=== PATIENT | female | born 1985 | race Hispanic/Latino ===

== ENCOUNTER 2018-05-29 17:51 | Emergency (ER) | payer OTHER ==
[2018-05-29 20:37] LABS: Urine Bacteria <20 /HPF (<20); Urine Culture Reflex Order NOT NEEDED; Urine RBC <5 /HPF (NONE SEEN)
--- NOTE | 2018-05-29 20:43 | ER ---
Nurse's Notes [facility] Name: Jessica Jacobsen Age: 33 yrs Sex: Female : 1985 Arrival Date: 05/29/2018 Time: 17:55 Bed 27 Private MD: Diagnosis: Acute upper respiratory infection, unspecified; related conditions, unspecified Presentation: 05/29 18:23 Presenting complaint: Patient states: Positive UPT over the weekend, began having flu ph like symptoms Sat, went to urgent care and was sent here because of , c/o fatigue, body aches, and sore throat. Transition of care: patient was not received from another setting of care. Onset of symptoms was May 29, 2018. Risk Assessment: Do you want to hurt yourself or someone else? Patient reports no desire to harm self or others. Initial Sepsis Screen: Does the patient meet any 2 criteria? No. Patient's initial sepsis screen is negative. Care prior to arrival: None. 18:23 Method Of Arrival: Ambulatory 18:23 Acuity: WILLY 4 ph 20:56 Initial Sepsis Screen: Does the patient have a suspected source of infection? No. tl3 Patient's initial sepsis screen is negative. 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 - Social history:: Smoking status: unknown. - Ebola Screening: : No symptoms or risks identified at this time. Screenin:35 Abuse screen: Denies threats or abuse. Nutritional screening: No deficits noted. tl3 Tuberculosis screening: No symptoms or risk factors identified. Fall Risk None identified. Assessment: 18:35 General: Appears uncomfortable, slender, well groomed, well developed, well nourished, tl3 Behavior is calm, cooperative, appropriate for age. Pain: Complains of pain in generalized body aches. Neuro: Level of Consciousness is awake, alert, obeys commands, Oriented to person, place, time, situation, Appropriate for age. Cardiovascular: Patient's skin is warm and dry. Respiratory: Airway is patent Respiratory effort is even, unlabored, Respiratory pattern is regular, symmetrical. GI:. : Reports positive test this week-end. EENT: Nares with drainage noted. Derm: No signs and/or symptoms reported regarding the dermatologic system. Musculoskeletal: No signs and/or symptoms reported regarding the musculoskeletal system. 20:07 Reassessment: No changes from previously documented assessment. Patient and/or family tl3 updated on plan of care and expected duration. Pain level reassessed. Patient is alert, oriented x 3, equal unlabored respirations, skin warm/dry/pink. pt ambulating to for urine specimen. 20:55 Reassessment: pt being discharged. tl3 Vital Signs: 18:26 BP 135 / 83; Pulse 97; Resp 22; Temp 98.0; Pulse Ox 100% on R/A; Weight 113.4 kg; ph Height 5 ft. 6 in. (167.64 cm); 20:38 BP 133 / 88; Pulse 94; Resp 18; Pulse Ox 99% on R/A; tl3 18:26 Body Mass Index 40.35 (113.40 kg, 167.64 cm) ph ED Course: 17:55 Patient arrived in ED. mr 18:26 Triage completed. ph 18:28 Arm band placed on. ph 18:35 Elana Calabrese RN is Primary Nurse. tl3 18:35 Patient has correct armband on for positive identification. Bed in low position. Call tl3 light in reach. Pulse ox on. NIBP on. 18:35 No provider procedures requiring assistance completed. tl3 18:43 Flu Sent. tl3 19:14 Kobe Loomis MD is Attending Physician. 20:07 Patient did not have IV access during this emergency room visit. tl3 20:41 Shirley Garcia MD is Referral Physician. Administered Medications: No medications were administered Outcome: 20:42 Discharge ordered by . 20:55 Discharged to home ambulatory. tl3 20:55 Condition: stable 20:55 Discharge instructions given to patient, family, Instructed on discharge instructions, follow up and referral plans. medication usage, Demonstrated understanding of instructions, follow-up care, medications. 20:57 Patient left the ED. tl3 Signatures: AmesMirna harrington Tracey Cancino RN RN Kobe Loomis MD MD Elana Calabrese RN RN tl3
--- NOTE | 2018-05-29 20:43 | EDPHYS ---
Physician Documentation [facility] Name: Jessica Jacobsen Age: 33 yrs Sex: Female : 1985 Arrival Date: 05/29/2018 Time: 17:55 Bed 27 Private MD: ED Physician Kobe Loomis HPI: 05/29 21:19 This 33 yrs old Female presents to ER via Ambulatory with complaints of Flu gs Symptoms, 5 wks . 21:19 The patient or guardian reports cough, that is intermittent. Onset: The gs symptoms/episode began/occurred 2 day(s) ago. Severity of symptoms: At their worst the symptoms were moderate, in the emergency department the symptoms are unchanged. Modifying factors: The symptoms are alleviated by nothing, the symptoms are aggravated by nothing. Associated signs and symptoms: Pertinent positives: fever, Pertinent negatives: chest pain, diarrhea. The patient has experienced similar episodes in the past, a few times. The patient has been recently seen at an urgent care. 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 - Social history:: Smoking status: unknown. - Ebola Screening: : No symptoms or risks identified at this time. ROS: 21:19 All other systems are negative. gs 21:19 : Negative for urinary symptoms, hematuria, pelvic pain, flank pain, burning with gs urination, vaginal bleeding, vaginal discharge, vaginal itching. Exam: 21:19 Head/Face: Normocephalic, atraumatic. Eyes: Pupils equal round and reactive to light, gs extra-ocular motions intact. Lids and lashes normal. Conjunctiva and sclera are non-icteric and not injected. Cornea within normal limits. Periorbital areas with no swelling, redness, or edema. ENT: Nares patent. No nasal discharge, no septal abnormalities noted. Tympanic membranes are normal and external auditory canals are clear. Oropharynx with no redness, swelling, or masses, exudates, or evidence of obstruction, uvula midline. Mucous membranes moist. Neck: Trachea midline, no thyromegaly or masses palpated, and no cervical lymphadenopathy. Supple, full range of motion without nuchal rigidity, or vertebral point tenderness. No Meningismus. Chest/axilla: Normal chest wall appearance and motion. Nontender with no deformity. No lesions are appreciated. Cardiovascular: Regular rate and rhythm with a normal S1 and S2. No gallops, murmurs, or rubs. Normal PMI, no JVD. No pulse deficits. Respiratory: Lungs have equal breath sounds bilaterally, clear to auscultation and percussion. No rales, rhonchi or wheezes noted. No increased work of breathing, no retractions or nasal flaring. Abdomen/GI: Soft, non-tender, with normal bowel sounds. No distension or tympany. No guarding or rebound. No evidence of tenderness throughout. Back: No spinal tenderness. No costovertebral tenderness. Full range of motion. Skin: Warm, dry with normal turgor. Normal color with no rashes, no lesions, and no evidence of cellulitis. MS/ Extremity: Pulses equal, no cyanosis. Neurovascular intact. Full, normal range of motion. Neuro: Awake and alert, GCS 15, oriented to person, place, time, and situation. Cranial nerves II-XII grossly intact. Motor strength 5/5 in all extremities. Sensory grossly intact. Cerebellar exam normal. Normal gait. 21:19 Constitutional: The patient appears alert, awake. Vital Signs: 18:26 BP 135 / 83; Pulse 97; Resp 22; Temp 98.0; Pulse Ox 100% on R/A; Weight 113.4 kg; ph Height 5 ft. 6 in. (167.64 cm); 20:38 BP 133 / 88; Pulse 94; Resp 18; Pulse Ox 99% on R/A; tl3 18:26 Body Mass Index 40.35 (113.40 kg, 167.64 cm) ph MDM: 20:02 Patient medically screened. gs 21:19 Differential Diagnosis: Bronchitis Influenza Upper Respiratory Infection. Data gs reviewed: vital signs, nurses notes. Counseling: I had a detailed discussion with the patient and/or guardian regarding: the historical points, exam findings, and any diagnostic results supporting the discharge/admit diagnosis, lab results. Response to treatment: the patient's symptoms have mildly improved after treatment. 21:22 Counseling: I had a detailed discussion with the patient and/or guardian regarding: the gs presence of at least one elevated blood pressure reading (>120/80) during this emergency department visit. Special discussion: I have referred the patient to see his PCP for further evaluation of high blood pressure. 05/29 18:40 Order name: Flu tl3 05/29 19:36 Order name: Urine Microscopic Only gs 05/29 19:36 Order name: Urine Test (obtain specimen); Complete Time: 20:38 gs 05/29 19:36 Order name: Urine Dipstick-Ancillary (obtain specimen); Complete Time: 20:38 gs 05/29 20:19 Order name: Urine Dipstick--Ancillary (enter results) ms 05/29 20:19 Order name: Urine --Ancillary (enter results) ms Administered Medications: No medications were administered Disposition: 05/29/18 20:42 Discharged to Home. Impression: Acute upper respiratory infection, unspecified, related conditions, unspecified. - Condition is Stable. - Discharge Instructions: Fever, Adult, Upper Respiratory Infection, Adult, First Trimester of , Managing Your Hypertension. - Medication Reconciliation Form, Thank You Letter, Antibiotic Education, Prescription Opioid Use form. - Follow up: Shirley Garcia MD; When: 2 - 3 days; Reason: Re-evaluation by your physician. Signatures: Dispatcher [employer] EDTracey Canales RN RN Kobe Loomis MD MD Elana Calabrese RN RN tl3 Corrections: (The following items were deleted from the chart) 20:57 20:42 05/29/2018 20:42 Discharged to Home. Impression: Acute upper respiratory tl3 infection, unspecified; related conditions, unspecified. Condition is Stable. Forms are Medication Reconciliation Form, Thank You Letter, Antibiotic Education, Prescription Opioid Use. Follow up: Shirley Garcia; When: 2 - 3 days; Reason: Re-evaluation by your physician.
[2018-05-29 20:58] LABS: Urine Blood TRACE (NEG); Urine Glucose NEGATIVE (NEG); Urine Protein NEGATIVE (NEG); Urine Specific Gravity 1.015 (1.005-1.030); Urine pH 5.5 (5.0-7.0)
== END 2018-05-29 20:57 | disposition home or self-care (01) ==
LOC: ER 17:51
DX: O26.891 Other specified pregnancy related conditions, first trimester (principal); J06.9 Acute upper respiratory infection, unspecified; Z3A.01 Less than 8 weeks gestation of pregnancy; Z79.82 Long term (current) use of aspirin
CPT/HCPCS: 81003; 81015; 81025; 87804; 99283

== ENCOUNTER 2018-06-10 18:04 | Emergency (ER) | payer OTHER ==
--- OUTSIDE RECORDS SUMMARY | 2018-06-10 18:06 | XMS REPORT ---
:1985 [facility] Address [address] [place] [address] [address] [place] [address] Care Team Providers Name Role Phone Unavailable Unavailable Unavailable Problems This patient has no known problems. Allergies, Adverse Reactions, Alerts Allergy Allergy Status Severity Reaction(s) Onset Inactive Treating Comments Name Type Date Date Clinician No Known DA Active U 2017-04 Allergies -08 00:00:0 0 Medications This patient has no known medications.
[2018-06-10 18:59] LABS: Absolute Lymphocytes (CBC) 1.6 K/uL (0.7-4.9); Absolute Monocytes 0.5 K/uL (0.1-1.3); Absolute Neutrophil 7.1 K/uL (1.8-8.0); Basophils % 0.7 % (0-1.3); Eosinophils % 2.5 % (0-4.4); Hematocrit 39.7 % (36.0-45.0); Lymphocytes % 16.5 % (15.3-44.8); MPV 9.2 fL (7.6-11.3); Monocytes % 4.9 % (3.3-12.3); RBC Red Blood Cell Count 4.96 M/uL (3.86-4.86)
[2018-06-10 19:51] LABS: BUN Blood Urea Nitrogen 8 mg/dL (7-18); Bicarbonate 29 mmol/L (21-32); Glucose Level 104 mg/dL (74-106); HCG, Quantitative 13995 mIU/mL (1-3); Potassium 3.8 mmol/L (3.5-5.1); Sodium Level 140 mmol/L (136-145)
[2018-06-10 19:56] LABS: Urine Blood 2+ (NEG); Urine Glucose NEGATIVE (NEG); Urine Protein NEGATIVE (NEG); Urine Specific Gravity 1.015 (1.005-1.030); Urine pH 7.5 (5.0-7.0)
--- NOTE | 2018-06-10 19:56 | RAD REPORT ---
EXAM DESCRIPTION: US - Transvaginal OB - 06/10/2018 7:47 pm CLINICAL HISTORY: VAGINAL BLEEDING COMPARISON: <Comparisons> FINDINGS: A single gestational sac is seen within the uterus. The shape of the sac is within normal limits for gestational age. A small yolk sac is suspected to be present within the gestational sac, h owever, no embryo yet identified. The placenta is not yet developed due to early gestational age. The maternal adnexa and left ovary are within normal limits. Normal Doppler blood flow was demonstrat ed to the left ovary. The right ovary is obscured by bowel. IMPRESSION: Early IUP findings are present. However, embryo is not yet noted. Advise correlation wit h HCG level and follow-up ultrasound in 7-10 days.
--- NOTE | 2018-06-10 20:21 | ER ---
Nurse's Notes [facility] Name: Jessica Jacobsen Age: 33 yrs Sex: Female : 1985 Arrival Date: 06/10/2018 Time: 18:07 Bed 15 Private MD: Diagnosis: Threatened Presentation: 06/10 18:18 Initial Sepsis Screen: Does the patient meet any 2 criteria? Yes Does the patient have tw2 a suspected source of infection? No. Patient's initial sepsis screen is negative. Care prior to arrival: None. 18:24 Presenting complaint: Patient states: pt states she had OB appt Tuesday with out of town tw2 dr and she had some spotting, but then today she had more bleeding with small clots and is having a "little cramping". Transition of care: patient was not received from another setting of care. Onset of symptoms was June 10, 2018. Risk Assessment: Do you want to hurt yourself or someone else? Patient reports no desire to harm self or others. 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 - Social history:: Smoking status: . - Ebola Screening: : Patient denies travel to an Ebola-affected area in the 21 days before illness onset. Screenin:18 Abuse screen: Denies threats or abuse. Nutritional screening: No deficits noted. tw2 Tuberculosis screening: No symptoms or risk factors identified. Fall Risk None identified. Assessment: 18:25 General: Appears in no apparent distress. obese, well groomed, Behavior is calm, tw2 cooperative, appropriate for age. Pain: Complains of pain in pelvis. Neuro: Level of Consciousness is awake, alert, obeys commands, Oriented to person, place, time, situation. Cardiovascular: Capillary refill < 3 seconds Patient's skin is warm and dry. Respiratory: Airway is patent Respiratory effort is even, unlabored, Respiratory pattern is regular, symmetrical, Breath sounds are clear bilaterally. GI: No signs and/or symptoms were reported involving the gastrointestinal system. Abdomen is round non-distended, Bowel sounds present X 4 quads. : Reports vaginal bleeding that is bright red, with clots, light flow. EENT: No signs and/or symptoms were reported regarding the EENT system. Derm: No signs and/or symptoms reported regarding the dermatologic system. Musculoskeletal: Range of motion: intact in all extremities. 19:03 Reassessment: Patient appears in no apparent distress at this time. Patient and/or jb4 family updated on plan of care and expected duration. Pain level reassessed. Patient is alert, oriented x 3, equal unlabored respirations, skin warm/dry/pink. 20:30 Reassessment: Patient appears in no apparent distress at this time. Patient and/or jb4 family updated on plan of care and expected duration. Pain level reassessed. Patient is alert, oriented x 3, equal unlabored respirations, skin warm/dry/pink. Vital Signs: 18:25 BP 132 / 79; Pulse 85; Resp 19; Temp 97.7(O); Pulse Ox 100% on R/A; Pain 5/10; tw2 19:15 BP 137 / 91; Pulse 76; Resp 16; Pulse Ox 100% on R/A; jb4 20:30 BP 134 / 91; Pulse 90; Resp 18; Pulse Ox 99% on R/A; jb4 ED Course: 18:07 Patient arrived in ED. rg4 18:17 Smitha Crum RN is Primary Nurse. tw2 18:18 Arm band placed on. tw2 18:19 Ozzy Noyola NP is PHCP. pm1 18:19 Haja Davey MD is Attending Physician. pm1 18:25 Triage completed. tw2 18:25 Bed in low position. Call light in reach. Adult w/ patient. Pulse ox on. NIBP on. tw2 18:40 Inserted saline lock: 22 gauge in right antecubital area, using aseptic technique. tw2 Blood collected. 18:47 Missed attempt(s): 22 gauge in left antecubital area. Bleeding controlled, band aid tw2 applied, catheter tip intact. 19:00 Report given to JOSE ALBERTO Valenzuela - outstanding US at this time. tw2 19:43 Ultrasound completed. Patient tolerated well. Notified BORING MACHINE OPERATOR PRODUCTION/DIAN tiwari. sg3 19:48 US Transvaginal Ob In Process Unspecified. EDMS 20:30 No provider procedures requiring assistance completed. IV discontinued, intact, jb4 bleeding controlled, No redness/swelling at site. Pressure dressing applied. Administered Medications: No medications were administered Outcome: 20:11 Discharge ordered by MD. pm1 20:30 Discharged to home ambulatory, with family. jb4 20:30 Condition: stable 20:30 Discharge instructions given to patient, family, Instructed on discharge instructions, follow up and referral plans. Demonstrated understanding of instructions, follow-up care. 20:31 Patient left the ED. jb4 Signatures: Dispatcher [employer] EDMS Ozzy Noyola NP BORING MACHINE OPERATOR PRODUCTION pm1 Smitha Crum RN RN tw2 Sameera Grove rg4 Aaron Arriaga, RN RN jb4 Honey Ordoñez sg3 Corrections: (The following items were deleted from the chart) 19:25 19:03 BP 137 / 91; Pulse 76bpm; Resp 16bpm; Pulse Ox 100% RA; jb4 jb4
--- NOTE | 2018-06-10 20:21 | EDPHYS ---
Physician Documentation [facility] Name: Jessica Jacobsen Age: 33 yrs Sex: Female : 1985 Arrival Date: 06/10/2018 Time: 18:07 Bed 15 Private MD: ED Physician Haja Davey HPI: 06/10 19:09 This 33 yrs old Female presents to ER via Ambulatory with complaints of pm1 Vaginal Bleeding, + Preg <12wks. 19:09 The patient presents to the emergency department with vaginal bleeding. The estimated pm1 gestational age is 6 weeks. course: care: private OB physician, Ultrasound: the patient has not had an ultrasound. Previous pregnancies: in previous pregnancies patient has had ectopic , 2 miscarriages. Associated signs and symptoms: Pertinent negatives: abdominal pain, chest pain, dysuria, fever, nausea, shortness of breath, vaginal discharge, vomiting. The patient has not experienced similar symptoms in the past. The patient has not recently seen a physician, has an appointment scheduled, in 2 day(s), with OB. 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 - Social history:: Smoking status: . - Ebola Screening: : Patient denies travel to an Ebola-affected area in the 21 days before illness onset. ROS: 19:09 Constitutional: Negative for fever, chills, and weight loss, Eyes: Negative for injury, pm1 pain, redness, and discharge, ENT: Negative for injury, pain, and discharge, Neck: Negative for injury, pain, and swelling, Cardiovascular: Negative for chest pain, palpitations, and edema, Respiratory: Negative for shortness of breath, cough, wheezing, and pleuritic chest pain, Abdomen/GI: Negative for abdominal pain, nausea, vomiting, diarrhea, and constipation, Back: Negative for injury and pain. 19:09 MS/Extremity: Negative for injury and deformity, Skin: Negative for injury, rash, and discoloration, Neuro: Negative for headache, weakness, numbness, tingling, and seizure. 19:09 : Positive for vaginal bleeding, Negative for urinary symptoms, urinary frequency, difficulty urinating. Exam: 19:09 Constitutional: This is a well developed, well nourished patient who is awake, alert, pm1 and in no acute distress. Head/Face: Normocephalic, atraumatic. Eyes: Pupils equal round and reactive to light, extra-ocular motions intact. Lids and lashes normal. Conjunctiva and sclera are non-icteric and not injected. Cornea within normal limits. Periorbital areas with no swelling, redness, or edema. ENT: Nares patent. No nasal discharge, no septal abnormalities noted. Tympanic membranes are normal and external auditory canals are clear. Oropharynx with no redness, swelling, or masses, exudates, or evidence of obstruction, uvula midline. Mucous membranes moist. Neck: Trachea midline, no thyromegaly or masses palpated, and no cervical lymphadenopathy. Supple, full range of motion without nuchal rigidity, or vertebral point tenderness. No Meningismus. Chest/axilla: Normal chest wall appearance and motion. Nontender with no deformity. No lesions are appreciated. Cardiovascular: Regular rate and rhythm with a normal S1 and S2. No gallops, murmurs, or rubs. Normal PMI, no JVD. No pulse deficits. Respiratory: Lungs have equal breath sounds bilaterally, clear to auscultation and percussion. No rales, rhonchi or wheezes noted. No increased work of breathing, no retractions or nasal flaring. Abdomen/GI: Soft, non-tender, with normal bowel sounds. No distension or tympany. No guarding or rebound. No evidence of tenderness throughout. Back: No spinal tenderness. No costovertebral tenderness. Full range of motion. Skin: Warm, dry with normal turgor. Normal color with no rashes, no lesions, and no evidence of cellulitis. MS/ Extremity: Pulses equal, no cyanosis. Neurovascular intact. Full, normal range of motion. 19:09 Neuro: Orientation: is normal, Motor: is normal, Sensation: is normal, no obvious gross deficits. Vital Signs: 18:25 BP 132 / 79; Pulse 85; Resp 19; Temp 97.7(O); Pulse Ox 100% on R/A; Pain 5/10; tw2 19:15 BP 137 / 91; Pulse 76; Resp 16; Pulse Ox 100% on R/A; jb4 20:30 BP 134 / 91; Pulse 90; Resp 18; Pulse Ox 99% on R/A; jb4 MDM: 18:20 Patient medically screened. pm1 19:13 Data reviewed: vital signs. Data interpreted: Pulse oximetry: on room air is 100 %. pm1 Interpretation: normal. 20:08 Counseling: I had a detailed discussion with the patient and/or guardian regarding: the pm1 historical points, exam findings, and any diagnostic results supporting the discharge/admit diagnosis, lab results, the need for outpatient follow up, to return to the emergency department if symptoms worsen or persist or if there are any questions or concerns that arise at home. 06/10 18:20 Order name: Quantitative Hcg; Complete Time: 20:08 pm1 06/10 18:20 Order name: Abo/rh Typing; Complete Time: 20:08 pm1 06/10 18:20 Order name: Basic Metabolic Panel; Complete Time: 20:08 pm1 06/10 18:20 Order name: CBC with Diff; Complete Time: 19:09 pm1 06/10 18:31 Order name: Urine Dipstick--Ancillary (enter results); Complete Time: 20:08 eb 06/10 18:31 Order name: Urine --Ancillary (enter results); Complete Time: 20:08 eb 06/10 18:20 Order name: Urine Test (obtain specimen); Complete Time: 18:27 pm1 06/10 18:20 Order name: IV Saline Lock; Complete Time: 18:48 pm1 06/10 18:20 Order name: Labs collected and sent; Complete Time: 18:48 pm1 06/10 18:20 Order name: NPO; Complete Time: 18:27 pm1 06/10 18:20 Order name: Urine Dipstick-Ancillary (obtain specimen); Complete Time: 18:26 pm1 06/10 18:34 Order name: US Transvaginal Ob; Complete Time: 20:08 pm1 Administered Medications: No medications were administered Disposition: 06/11 09:57 Co-signature as Attending Physician, Haja Davey MD. rn Disposition: 06/10/18 20:11 Discharged to Home. Impression: Threatened . - Condition is Stable. - Discharge Instructions: Threatened Miscarriage, Pelvic Rest. - Medication Reconciliation Form, Thank You Letter, Antibiotic Education form. - Follow up: Emergency Department; When: As needed; Reason: Worsening of condition. Follow up: Private Physician; When: 2 - 3 days; Reason: Recheck today's complaints, Continuance of care, Re-evaluation by your physician. - Problem is new. - Symptoms have improved. Signatures: Dispatcher [employer] EDMS Haja Davey MD MD rn Marinas, Patrick, SEISMOGRAPH HELPER SEISMOGRAPH HELPER pm1 Smitha Crum RN RN tw2 Aaron Arriaga RN RN jb4 Corrections: (The following items were deleted from the chart) 06/10 20:31 20:11 06/10/2018 20:11 Discharged to Home. Impression: Threatened . Condition jb4 is Stable. Forms are Medication Reconciliation Form, Thank You Letter, Antibiotic Education, Prescription Opioid Use. Follow up: Emergency Department; When: As needed; Reason: Worsening of condition. Follow up: Private Physician; When: 2 - 3 days; Reason: Recheck today's complaints, Continuance of care, Re-evaluation by your physician. Problem is new. Symptoms have improved. pm1
== END 2018-06-10 20:31 | disposition home or self-care (01) ==
LOC: ER 18:04
DX: O20.0 Threatened abortion (principal); Z3A.01 Less than 8 weeks gestation of pregnancy; Z79.82 Long term (current) use of aspirin
CPT/HCPCS: 36415; 76817; 80048; 81003; 81025; 84702; 85025; 86900; 86901; 99284